=== PATIENT | female | born 1995 | race Caucasian/White ===

== ENCOUNTER 2019-07-23 15:27 | Observation (INO) ==
[2019-07-23 16:05] LABS: Basophils % 0.2 %; Eosinophils # 0.1 K/mcL (0.0-0.6); Eosinophils % 0.8 %; Hematocrit 35.5 % (35.3-44.9); Hemoglobin 11.8 g/dL (11.5-15.4); Immature Granulocytes % 0.6 % (0-4); Immature Platelets 2.3 % (1.1-6.1); Lymphocytes # 2.4 K/mcL (0.6-4.6); Lymphocytes % 18.7 %; Mean Corpuscular HGB Conc 33.2 g/dL (31.6-35.5); Mean Corpuscular Hemoglobin 27.3 pg (28.0-33.3); Mean Platelet Volume 9.5 fL (9.4-12.4); Monocytes # 0.7 K/mcL (0.0-1.3); Monocytes % 5.7 %; Neutrophils # 9.3 K/mcL (1.6-8.9); Platelet Count 262 K/mcL (140-400); Red Blood Count 4.33 M/mcL (3.82-4.97); Red Cell Distribution Width 13.4 % (11.5-14.5); White Blood Count 12.5 K/mcL (4.3-11.1)
[2019-07-23 16:30] LABS: Amphetamine Screen,Urine Negative ng/mL (Cutoff=1000); Barbiturate Screen,Urine Negative ng/mL (Cutoff=200); Benzodiazepines Screen,Urine Negative ng/mL (Cutoff=200); Cannabinoid Screen,Urine Negative ng/mL (Cutoff = 50); Cocaine Screen,Urine Negative ng/mL (Cutoff= 300); Opiate Screen,Urine Negative ng/mL (Cutoff=300); Phencyclidine Screen,Urine Negative ng/mL (Cutoff=25); Protein/Creatinine Ratio,Urine 0.23 mg/mg (0.00-0.20)
[2019-07-23 16:31] LABS: Alanine Aminotransferase 6 Units/L (7-52); Aspartate Amino Transferase 11 Units/L (13-39); BUN/Creatinine Ratio 18 (6-26); Blood Urea Nitrogen 7 mg/dL (6-20); Lactate Dehydrogenase 112 Units/L (140-271); Uric Acid 4.5 mg/dL (2.3-7.6); eGFR For African Americans > 60 (> 60); eGFR For Non-African Americans > 60 (> 60)
== END 2019-07-23 16:59 | disposition home or self-care (01) ==
LOC: 1NENULAB
PROVIDERS: ADMIT Advanced Practice Midwife; ATTEND Advanced Practice Midwife

== ENCOUNTER 2019-08-08 11:36 | Inpatient (IN) ==
[2019-08-08] MEDS ORDERED: Lidocaine 1% 20 ML MDV INFILT PRN (11:39)
[2019-08-08] MEDS ORDERED: Naloxone 0.4 MG/ML INJ IVP PRN (11:39)
[2019-08-08] MEDS ORDERED: Ondansetron 4 MG/2 ML VIAL IVP PRN (11:39)
[2019-08-08] MEDS ORDERED: Famotidine 20 MG/2 ML VIAL IVP PRN (11:39)
[2019-08-08] MEDS ORDERED: Metoclopramide 10 MG/2 ML VIAL IVP PRN (11:39)
[2019-08-08 12:21] LABS: Basophils % 0.2 %; Eosinophils # 0.1 K/mcL (0.0-0.6); Eosinophils % 0.7 %; Hematocrit 32.9 % (35.3-44.9); Hemoglobin 11.2 g/dL (11.5-15.4); Immature Granulocytes % 0.9 % (0-4); Lymphocytes % 16.2 %; Mean Corpuscular Hemoglobin 27.6 pg (28.0-33.3); Mean Platelet Volume 9.8 fL (9.4-12.4); Monocytes # 0.8 K/mcL (0.0-1.3); Monocytes % 6.5 %; Neutrophils # 9.1 K/mcL (1.6-8.9); Platelet Count 270 K/mcL (140-400); Red Blood Count 4.06 M/mcL (3.82-4.97); Red Cell Distribution Width 13.8 % (11.5-14.5); Segmented Neutrophils % 75.5 %; White Blood Count 12.1 K/mcL (4.3-11.1)
[2019-08-08] MEDS ORDERED: miSOPROStoL 25 MCG TABLET PO PRN (12:35)
[2019-08-08 12:37] LABS: Amphetamine Screen,Urine Negative ng/mL (Cutoff=1000); Barbiturate Screen,Urine Negative ng/mL (Cutoff=200); Benzodiazepines Screen,Urine Negative ng/mL (Cutoff=200); Cannabinoid Screen,Urine Negative ng/mL (Cutoff = 50); Cocaine Screen,Urine Negative ng/mL (Cutoff= 300); Opiate Screen,Urine Negative ng/mL (Cutoff=300); Phencyclidine Screen,Urine Negative ng/mL (Cutoff=25)
[2019-08-08 12:44] LABS: Alanine Aminotransferase 8 Units/L (7-52); Aspartate Amino Transferase 16 Units/L (13-39); BUN/Creatinine Ratio 18 (6-26); Blood Urea Nitrogen 8 mg/dL (6-20); Lactate Dehydrogenase 182 Units/L (140-271); eGFR For African Americans > 60 (> 60); eGFR For Non-African Americans > 60 (> 60)
[2019-08-08 12:59] LABS: Creatinine,Urine 103 mg/dL; Protein/Creatinine Ratio,Urine 0.18 mg/mg (0.00-0.20)
[2019-08-08] MEDS ORDERED: *HR* Labetalol 20 MG/4 ML SYRINGE IVP ONE ×2 (17:35→17:36)
[2019-08-08] MEDS: Ringers Solution, Lactated 1,000 ML IVC SCH (20:14)
[2019-08-08] MEDS: Epidural Premix (fent/bupiv) 110 ML EP SCH (22:00)
[2019-08-08] MEDS: Oxytocin 20 units/ LR 1000 mL 20 UNIT/1,000 ML BAG IVC SCH (22:37)
[2019-08-09] MEDS: Epidural Premix (fent/bupiv) 110 ML EP SCH ×2 (03:15→15:56)
[2019-08-09] MEDS ORDERED: Calcium Gluconate 1,000 MG/10 ML VIAL IVPB PRN (03:54)
[2019-08-09] MEDS: Magnesium Sulfate 20 gm/500mL 20 GM/500 ML IV.SOLN IVC SCH ×2 (05:48→15:52)
[2019-08-09] MEDS ORDERED: miSOPROStoL 100 MCG TABLET PO ONE (09:58)
[2019-08-09] MEDS ORDERED: Methylergonovine 0.2 MG/ML AMPUL IM ONE (09:58)
[2019-08-09] MEDS ORDERED: Bupivacaine-MPF 0.25% 10 ML VIAL ONE (10:23)
[2019-08-09] MEDS: Ringers Solution, Lactated 1,000 ML IVC SCH (15:53)
[2019-08-09] MEDS: Oxytocin 20 units/ LR 1000 mL 20 UNIT/1,000 ML BAG IVC SCH (15:53)
[2019-08-09] MEDS ORDERED: Magnesium Sulfate 20 gm/500mL 20 GM/500 ML IV.SOLN IVC SCH (21:45)
[2019-08-10] MEDS ORDERED: Rho Immune Globulin 1,500 UNIT SYRINGE IM PRN (00:30)
[2019-08-10] MEDS ORDERED: Benzocaine/Menthol 56 GM AEROSOL SPRAY TP PRN (00:30)
[2019-08-10] MEDS ORDERED: Measles/Mumps/Rubella Vacc 0.5 ML VIAL SQ PRN (00:30)
[2019-08-10] MEDS ORDERED: Oxytocin 20 units/ LR 1000 mL 20 UNIT/1,000 ML BAG IVC SCH (00:30)
[2019-08-10] MEDS ORDERED: Acetaminophen 325 MG TABLET PO PRN (00:30)
[2019-08-10] MEDS: Ibuprofen 600 MG TABLET PO PRN ×3 (00:49→19:58)
[2019-08-10] MEDS ORDERED: Ondansetron 4 MG/2 ML VIAL IVP PRN (00:55)
[2019-08-10] MEDS ORDERED: Magnesium Sulfate 20 gm/500mL 20 GM/500 ML IV.SOLN IVC SCH (03:00)
[2019-08-10 06:48] LABS: Basophils % 0.1 %; Hematocrit 26.4 % (35.3-44.9); Immature Granulocytes % 0.7 % (0-4); Lymphocytes # 1.5 K/mcL (0.6-4.6); Lymphocytes % 7.6 %; Mean Corpuscular HGB Conc 34.1 g/dL (31.6-35.5); Mean Corpuscular Hemoglobin 27.4 pg (28.0-33.3); Mean Corpuscular Volume 80.2 fL (83.0-100.0); Mean Platelet Volume 9.8 fL (9.4-12.4); Monocytes # 1.4 K/mcL (0.0-1.3); Monocytes % 7.3 %; Neutrophils # 16.4 K/mcL (1.6-8.9); Platelet Count 235 K/mcL (140-400); Red Blood Count 3.29 M/mcL (3.82-4.97); Red Cell Distribution Width 13.9 % (11.5-14.5); Segmented Neutrophils % 84.3 %
[2019-08-10 06:49] LABS: White Blood Count 19.4 K/mcL (4.3-11.1)
[2019-08-10 07:09] LABS: Alanine Aminotransferase 9 Units/L (7-52); Aspartate Amino Transferase 25 Units/L (13-39); BUN/Creatinine Ratio 12 (6-26); Blood Urea Nitrogen 7 mg/dL (6-20); Lactate Dehydrogenase 237 Units/L (140-271); Uric Acid 7.2 mg/dL (2.3-7.6); eGFR For African Americans > 60 (> 60); eGFR For Non-African Americans > 60 (> 60)
[2019-08-10] MEDS: Prenatal Vit/FA 1 EACH TABLET PO SCH (08:21)
[2019-08-11] MEDS: Ibuprofen 600 MG TABLET PO PRN (04:23)
[2019-08-11 08:19] VITALS: BP 129/74
[2019-08-11] MEDS: Prenatal Vit/FA 1 EACH TABLET PO SCH (09:24)
== END 2019-08-11 12:00 | disposition home or self-care (01) | DRG 807 ==
LOC: 1NENULAB 11:36 → 1NENUOBS 08-10 00:22
PROVIDERS: ADMIT Student in an Organized Health Care Education/Training Program; ATTEND Student in an Organized Health Care Education/Training Program